=== PATIENT | male | born 1995 | race Caucasian/White ===

== ENCOUNTER 2021-06-05 19:44 | Emergency (ER) | payer SELFPAY ==
[~2021-06-05] VITALS: Ht 190 cm; Wt 102.0 kg
--- NOTE | 2021-06-05 20:05 | ED Upper Extremity ---
General Chief Complaint: Upper Extremity Stated Complaint: WAS TREATED FOR L ARM DISLOCATION AND FX/NEW INJ Source: patient Exam Limitations: no limitations History of Present Illness Date Seen by Provider: Jun 05, 2021 Time Seen by Provider: 20:03 Initial Comments To ER accompanied by an older female possibly mom or grandmother with reports of left arm injury. He sustained a dislocation of the left elbow 3 weeks ago in [facility]. He was treated in the emergency room with reduction and was also found to have a fracture of the bottom part of his humerus he states. He has not yet seen orthopedics but is scheduled to do so on Monday of this coming week. Tonight he bumped the elbow on something and now it hurts worse. Onset: just prior to arrival Severity: moderate Pain/Injury Location: left elbow Method of Injury: direct blow Modifying Factors: Worse With Movement Allergies and Home Medications Allergies Coded Allergies: No Known Drug Allergies (Unverified , 09/10/11) Patient Home Medication List Home Medication List Reviewed: Yes Review of Systems Constitutional: see HPI EENTM: see HPI Respiratory: no symptoms reported Cardiovascular: no symptoms reported Genitourinary: no symptoms reported Musculoskeletal: no symptoms reported Skin: no symptoms reported Psychiatric/Neurological: No Symptoms Reported Physical Exam Vital Signs Vital Signs - First Documented 06/05/21 20:02 Temp 37.1 Pulse 100 Resp 20 B/P (MAP) 143/90 (107) Pulse Ox 97 O2 Delivery Room Air Capillary Refill : Height, Weight, BMI Height: '" Weight: lbs. oz. kg; BMI Method: General Appearance: WD/WN, no apparent distress HEENT: PERRL/EOMI, normal ENT inspection Respiratory: no respiratory distress, no accessory muscle use Shoulder: normal inspection, non-tender Elbow/Forearm: Left, limited ROM, pain Wrist: Yes normal inspection, Yes non-tender Hand: normal inspection, non-tender Neurologic/Psychiatric: alert, normal mood/affect, oriented x 3 Skin: normal color, warm/dry Progress/Results/Core Measures Results/Orders My Orders Orders - CLARENCE JARAMILLO APRN Elbow, Left, 3 Views (06/05/21 20:00) Rx-Hydrocodone/Apap 5-325 Mg (Rx-Vicodin (06/05/21 20:00) Medications Given in ED Current Medications Medications Dose Ordered Sig/Sanjuana Route Start Time Stop Time Status Last Admin Dose Admin Acetaminophen/ Hydrocodone Bitart 1 ea Q4H PRN PO 06/05/21 20:00 06/05/21 20:08 1 EA Vital Signs/I&O 06/05/21 20:02 Temp 37.1 Pulse 100 Resp 20 B/P (MAP) 143/90 (107) Pulse Ox 97 O2 Delivery Room Air Departure Impression Primary Impression: Elbow fracture, left Disposition: HOME, SELF-CARE Condition: Stable Departure-Patient Inst. Decision time for Depature: 20:23 Referrals: [facility] (PCP/Family) Primary Care Physician Patient Instructions: Elbow Fracture (DC) Add. Discharge Instructions: Wear your sling at all times. Return to ER for any worsening. All discharge instructions reviewed with patient and/or family. Voiced understanding. Warm Scripts Hydrocodone/Acetaminophen (Hydrocodone-Acetamin 5-325 mg) 1 Each Tablet 1 TAB PO Q4H PRN for PAIN-MODERATE (5-7), #14 TAB Prov: CLARENCE JARAMILLO APRN 06/05/21 CLARENCE JARAMILLO APRN Jun 05, 2021 20:05
--- NOTE | 2021-06-05 20:22 | Diagnostic Imaging Report ---
INDICATION: Pain. FINDINGS: There is a minimally displaced fracture of the coronoid process. There is no other fracture or dislocation. Soft tissues are unremarkable. IMPRESSION: Minimally displaced fracture of the coronoid process otherwise unremarkable. Dictated by: Dictated on workstation # [id number]
[2021-06-05] MEDS ORDERED: ACHD5005 PO (20:24)
[2021-06-05 20:30] VITALS: BP 140/89
== END 2021-06-05 20:30 | disposition home or self-care (01) ==
LOC: EDUNIT# 19:44 → ER 19:47
DX: S52.042A Displaced fracture of coronoid process of left ulna, initial encounter for closed fracture (principal); X58.XXXA Exposure to other specified factors, initial encounter
CPT/HCPCS: 73080; 99283; A4565